=== PATIENT | female | born 1980 | race Caucasian/White ===

== ENCOUNTER 2022-04-26 09:34 | Outpatient (CLI) | payer BC ==
[2022-04-26 10:21] LABS: Mean Corpuscular Hemoglobin 24.7 pg (27.0-33.0); Mean Corpuscular Volume 79.8 fl (81.6-98.3); Mean Platelet Volume 11.2 fl (7.4-10.4); Platelet Count 232 10x3/uL (150-450); RBC Distribution Width 14.1 % (11.5-14.5); Red Blood Cell (RBC) Count 4.45 10x6/uL (3.90-5.03)
[2022-04-26 11:03] LABS: BHCG - Serum Negative (NEGATIVE); Pregs Control Background? CLEAR/WHITE (CLR/WHITE); Pregs Control Bar Appear? YES (CONTROL BAR)
== END 2022-04-26 09:35 | disposition home or self-care (01) ==
LOC: CSHLAB 09:34
PROVIDERS: ATTEND Obstetrics & Gynecology
DX: U07.1 COVID-19 (principal); Z15.01 Genetic susceptibility to malignant neoplasm of breast
CPT/HCPCS: 84703; 85027; 86850; 86900; 86901; 87811

== ENCOUNTER 2022-06-19 05:48 | Observation (INO) | payer BC ==
[2022-06-17 14:12] LABS: #Eosinphils 0.1 10x3/uL (0.0-0.5); #Monocytes 0.4 10x3/uL (0.0-1.1); #Neutrophils 3.1 10x3/uL (1.5-8.4); %Basophils 0.2 % (0.0-2.0); %Eosinophils 1.5 % (0.0-6.0); %Monocytes 6.8 % (0.0-10.0); %Neutrophils 56.1 % (40.0-75.0); Hemoglobin 10.1 g/dL (12.0-15.5); Mean Corpuscular Hemoglobin 24.5 pg (27.0-33.0); Mean Corpuscular Volume 78.9 fl (81.6-98.3); Mean Platelet Volume 11.7 fl (7.4-10.4); Platelet Count 244 10x3/uL (150-450); RBC Distribution Width 14.1 % (11.5-14.5); Red Blood Cell (RBC) Count 4.13 10x6/uL (3.90-5.03); White Blood Cell (WBC) Count 5.5 10x3/uL (3.5-10.5)
[2022-06-17 14:34] LABS: Anion Gap 13 mmol/L (10-20); BUN (Urea Nitrogen) 11 mg/dL (7.0-18.7); Calc. Creatinine Clearance 0 mL/min (70-130); Calcium 9.5 mg/dL (7.8-10.44); Carbon Dioxide 25 mmol/L (22-29); Chloride 105 mmol/L (98-107); Estimated GFR 103; Glucose 90 mg/dL (70-105); Potassium 3.9 mmol/L (3.5-5.1); Sodium 139 mmol/L (136-145)
[2022-06-17 14:39] VITALS: BMI 39.2
[2022-06-17 14:46] LABS: BHCG - Serum Negative (NEGATIVE); Pregs Control Background? CLEAR/WHITE (CLR/WHITE); Pregs Control Bar Appear? YES (CONTROL BAR)
[2022-06-19] MEDS ORDERED: Gabapentin 300 MG CAP ONE (06:34)
[2022-06-19] MEDS ORDERED: CeleCOXIB 100 MG CAP ONE (06:35)
[2022-06-19] MEDS ORDERED: Fentanyl 250 MCG/5 ML VIAL ONE ×2 (06:46→10:41)
[2022-06-19] MEDS ORDERED: Midazolam HCl 2 mg/2 ml Vial ONE ×2 (06:46→07:08)
[2022-06-19] MEDS ORDERED: PROPOFOL 20 ML ONE ×2 (06:46→09:41)
[2022-06-19] MEDS ORDERED: Lidocaine 1% PF 5 ML VIAL ONE (06:47)
[2022-06-19] MEDS ORDERED: Glycopyrrolate 0.2 MG/ML 5 ML SYRINGE ONE (06:47)
[2022-06-19] MEDS ORDERED: Dexamethasone 4 mg/ml Vial ONE (06:47)
[2022-06-19] MEDS ORDERED: Rocuronium Bromide 10 MG/ML (10ML VIAL) ONE ×2 (06:47→09:41)
[2022-06-19] MEDS ORDERED: Ketorolac Tromethamine 30 MG/ML VIAL ONE (06:47)
[2022-06-19] MEDS ORDERED: Ondansetron PF 4 MG/2 ML Vial ONE (06:47)
[2022-06-19] MEDS ORDERED: Acetaminophen 500 MG TAB ONE (06:49)
[2022-06-19] MEDS ORDERED: EPINEPHrine 1 MG/ML AMP ONE ×2 (06:49→07:13)
[2022-06-19] MEDS ORDERED: Bupivacaine PF 0.5% 30 ML VIAL ONE (06:50)
[2022-06-19] MEDS ORDERED: Heparin 5,000 UNITS/ML VIAL ONE (07:08)
[2022-06-19] MEDS ORDERED: Famotidine/PF 20 mg/2ml Vial ONE (07:08)
[2022-06-19] MEDS ORDERED: Isosulfan Blue 50 MG/5 ML VIAL ONE (07:13)
[2022-06-19] MEDS ORDERED: Bupivacaine 0.25% HCL 30 ML VIAL ONE ×2 (07:13→07:28)
[2022-06-19] MEDS ORDERED: Gentamicin 80 MG/2 ML VIAL ONE ×2 (07:14→07:27)
[2022-06-19] MEDS ORDERED: Neomycin-Polymyxin 1 ML AMP ONE ×2 (07:14→07:27)
[2022-06-19] MEDS ORDERED: Lidocaine 1% MPF 2 ML VIAL ONE (07:23)
[2022-06-19] MEDS ORDERED: CEFAZOLIN 2 GM VIAL ONE (07:41)
[2022-06-19] MEDS ORDERED: Morphine 2 MG/ML VIAL SLOW IVP PRN (13:13)
[2022-06-19] MEDS ORDERED: Ondansetron PF 4 MG/2 ML Vial IVP PRN ×2 (13:13→13:30)
[2022-06-19] MEDS ORDERED: Acetaminophen 325 MG TAB PO PRN (13:13)
[2022-06-19] MEDS ORDERED: Dextrose 50% Abboject 50 ML SYRINGE SLOW IVP PRN (13:13)
[2022-06-19] MEDS ORDERED: Promethazine HCl 25 MG/ML VIAL IM PRN ×2 (13:13→13:30)
[2022-06-19] MEDS ORDERED: hydrALAZINE 20 MG/ML VIAL SLOW IVP PRN (13:13)
[2022-06-19] MEDS ORDERED: Dextrose 5% in Water 1,000 ML IV PRN (13:13)
[2022-06-19] MEDS ORDERED: Morphine 4 MG/ML VIAL SLOW IVP PRN (13:13)
[2022-06-19] MEDS ORDERED: HYDROcodone/Acetaminophen 7.5/325 mg Tablet PO PRN ×2 (13:13)
[2022-06-19] MEDS ORDERED: diphenhydrAMINE 50 MG/ML VIAL IM/IV PRN (13:30)
[2022-06-19] MEDS ORDERED: Naloxone HCl 0.4 mg/ml Vial IV PRN (13:30)
[2022-06-19] MEDS ORDERED: fentaNYL Citrate/PF 1,000 MCG, Admixture Fee 1 EACH in Sodium Chloride 0.9% 30 ML IV PRN (13:30)
[2022-06-19] MEDS ORDERED: Zolpidem Tartrate 5 MG TAB PO PRN (13:30)
[2022-06-19] MEDS ORDERED: HYDROmorphone 0.5 MG/0.5 ML SYRINGE ONE ×2 (13:50→14:46)
[2022-06-19] MEDS ORDERED: Albuterol Sulfate 2.5 mg/3 ml Neb ONE (15:03)
[2022-06-19] MEDS: Famotidine 20 MG TAB PO SCH (20:50)
[2022-06-19] MEDS: Lactated Ringer's 1,000 ML IV SCH (20:51)
[2022-06-20 04:53] LABS: #Monocytes 0.7 10x3/uL (0.0-1.1); #Neutrophils 10.3 10x3/uL (1.5-8.4); %Basophils 0.2 % (0.0-2.0); %Lymphocytes 7.2 % (18.0-47.0); %Monocytes 6.2 % (0.0-10.0); %Neutrophils 85.9 % (40.0-75.0); Hemoglobin 9.8 g/dL (12.0-15.5); Mean Corpuscular HGB CONC 30.7 g/dL (32.0-36.0); Mean Corpuscular Hemoglobin 24.3 pg (27.0-33.0); Mean Corpuscular Volume 79.2 fl (81.6-98.3); Mean Platelet Volume 11.8 fl (7.4-10.4); Platelet Count 253 10x3/uL (150-450); Red Blood Cell (RBC) Count 4.03 10x6/uL (3.90-5.03); White Blood Cell (WBC) Count 11.9 10x3/uL (3.5-10.5)
[2022-06-20 05:06] LABS: Anion Gap 13 mmol/L (10-20); BUN (Urea Nitrogen) 9 mg/dL (7.0-18.7); Calc. Creatinine Clearance 209 mL/min (70-130); Calcium 8.5 mg/dL (7.8-10.44); Carbon Dioxide 23 mmol/L (22-29); Chloride 106 mmol/L (98-107); Estimated GFR 112; Glucose 115 mg/dL (70-105); Potassium 4.4 mmol/L (3.5-5.1); Sodium 138 mmol/L (136-145)
[2022-06-20] MEDS: Lactated Ringer's 1,000 ML IV SCH (06:54)
[2022-06-20] MEDS ORDERED: HYDROcodone/Acetaminophen 7.5/325 mg Tablet PO PRN (08:52)
[2022-06-20] MEDS: Famotidine 20 MG TAB PO SCH (10:14)
[2022-06-20 13:00] VITALS: BP 102/50; TEMP 98
== END 2022-06-20 15:26 | disposition home or self-care (01) ==
LOC: CSHSDC 05:48 → CSHTELE 15:53 → INTOOBSV 15:53
PROVIDERS: ADMIT Specialist; ATTEND Specialist
PROC: 0UT94ZZ Resection of Uterus, Percutaneous Endoscopic Approach (ICD-10-PCS; principal; 2022-06-19)
PROC: 0UT24ZZ Resection of Bilateral Ovaries, Percutaneous Endoscopic Approach (ICD-10-PCS; 2022-06-19)
PROC: 0UT74ZZ Resection of Bilateral Fallopian Tubes, Percutaneous Endoscopic Approach (ICD-10-PCS; 2022-06-19)
PROC: 0HTV0ZZ Resection of Bilateral Breast, Open Approach (ICD-10-PCS; 2022-06-19)
PROC: 0HRV07Z Replacement of Bilateral Breast with Autologous Tissue Substitute, Open Approach (ICD-10-PCS; 2022-06-19)
DX: D25.9 Leiomyoma of uterus, unspecified (principal); N60.22 Fibroadenosis of left breast; N60.21 Fibroadenosis of right breast; D24.2 Benign neoplasm of left breast; D24.1 Benign neoplasm of right breast; N83.02 Follicular cyst of left ovary; N92.0 Excessive and frequent menstruation with regular cycle; N73.6 Female pelvic peritoneal adhesions (postinfective); Z15.01 Genetic susceptibility to malignant neoplasm of breast; G89.18 Other acute postprocedural pain; E66.9 Obesity, unspecified; Z68.39 Body mass index [BMI] 39.0-39.9, adult; J44.9 Chronic obstructive pulmonary disease, unspecified; K21.9 Gastro-esophageal reflux disease without esophagitis; Z20.822 Contact with and (suspected) exposure to COVID-19; Z79.899 Other long term (current) drug therapy
CPT/HCPCS: 36415; 36416; 80048; 84703; 85025; 86850; 86900; 86901; 88307; 94640; C1776; J0171; J0690; J1100; J1170; J1580; J1644; J1885; J2250; J2405; J2704; J3010; J3370; J3490; J7120; J7611; J7620; Q9968; S0020; S0028